=== PATIENT | female | born 1955 ===

== ENCOUNTER 2018-10-31 06:20 | Day surgery (SDC) | payer MEDICARE, MEDICAID ==
[~2018-10-31 06:20] MED LIST: Buffered Lidocaine 1% SYRIN* 1 ML/SYRINGE INTRADERM ONE; Dexamethasone IV* 4 MG/ML 1 ML (4 MG) IV SLOW PU ONE; DiMENhydriNATE IV* 50 MG/ML VIAL IV PUSH PRN; Famotidine IV* 10 MG/ML 2 ML (20 mg) IV ONE; HYDROmorphone INJ1* 1 MG/ML SYRINGE IV PRN; Lactated Ringers 1000 ML Bag* 1,000 ML IV SCH; Naloxone* 0.4 MG/ML 1 ML VIAL IV PRN; Ondansetron ODT TAB* 4 MG PO ONE; PROCHLORPERAZINE INJ 5 MG/ML 2 ML VIAL IV PRN; fentaNYL* 50 MCG/ML 2 ML VIAL (100 MCG VIAL) IV PRN; oxyCODONE TAB* 5 MG TAB PO PRN
[2018-10-31] MEDS ORDERED: Ondansetron ODT TAB* 4 MG ONE (06:22)
[2018-10-31] MEDS ORDERED: Dexamethasone IV* 4 MG/ML 1 ML (4 MG) ONE (06:23)
[2018-10-31] MEDS ORDERED: Buffered Lidocaine 1% SYRIN* 1 ML/SYRINGE INTRADERM ONE (06:23)
[2018-10-31] MEDS ORDERED: Famotidine IV* 10 MG/ML 2 ML (20 mg) ONE (06:23)
[2018-10-31] MEDS ORDERED: Bupivacaine 0.5% SDV PF* 30ML VIAL ONE (07:04)
[2018-10-31] MEDS ORDERED: Lidocaine 1% INJ* 10 MG/ML 30 ML SDV ONE (07:04)
[2018-10-31] MEDS ORDERED: Propofol* 10 MG/ML 20 ML BTL ONE (07:08)
[2018-10-31] MEDS ORDERED: Lidocaine 2% PF * 5 ML VIAL ONE (07:08)
[2018-10-31] MEDS ORDERED: Ketorolac INJ* 30 MG/ML 1 ML VIAL ONE (07:08)
[2018-10-31] MEDS ORDERED: fentaNYL* 50 MCG/ML 2 ML VIAL (100 MCG VIAL) ONE (07:09)
[2018-10-31] MEDS ORDERED: Midazolam* 1 MG/ML 5 ML VIAL (5 MG) ONE (07:09)
[2018-10-31] MEDS ORDERED: KETAMINE HCL* 50 MG/ML 10 ML VIAL ONE (07:09)
[2018-10-31] MEDS ORDERED: Flumazenil* 0.1 MG/ML 5 ML MDV ONE (08:10)
[2018-10-31 09:40] VITALS: BP 149/68
--- NOTE | 2018-10-31 14:48 | OP ---
DATE OF OPERATION: 10/31/18 [facility] DATE OF : 57 SURGEON: Cece Yepez MD TRANSFILL TECHNICIAN: SHELBI Keller ANESTHESIA: General. PRE-OP DIAGNOSIS: Left elbow olecranon bursitis. POST-OP DIAGNOSIS: Left elbow olecranon bursitis. OPERATIVE PROCEDURE: Olecranon bursectomy, left elbow. ESTIMATED BLOOD LOSS: Zero. TOURNIQUET TIME: Approximately 30 minutes. INDICATIONS FOR PROCEDURE: Lita is a 63-year-old female who has a large mass on the posterior aspect of her left elbow consistent with an olecranon bursa. It is larger than a golf ball. She presents for operative removal. DESCRIPTION OF PROCEDURE: The patient was brought to the operating room, was given a general anesthetic. And placed in the supine position on the operating table with a tourniquet around her left upper arm. The skin of her left upper extremity was prepped and draped in the usual sterile fashion. The upper extremity was exsanguinated and the tourniquet elevated to 250 mmHg. A slightly curved incision was made on the posterior aspect of the elbow toward the lateral aspect and we dissected through the subcutaneous tissue down to the bursa. The bursa was carefully dissected away from the subcutaneous tissue and the triceps tendon was filled with a large amount of clear bloody fluid. It was sent for pathology. The wound was copiously irrigated with saline. The subcutaneous tissue was closed with 3-0 Vicryl over a Dion drain and the skin edges were reapproximated with skin mj. The wound was dressed with Xeroform, 4x4, Webril, and an Yobani wrap. The patient tolerated the procedure well and was brought to the recovery room in good condition. [id number]/CPS #: [id number] MTDD
--- NOTE | 2018-12-07 14:11 | HP ---
HISTORY AND PHYSICAL: DATE OF ADMISSION: 10/31/18 CHIEF COMPLAINT: Left elbow pain. HISTORY OF PRESENT ILLNESS: Lita is a 63-year-old [id number] female, who cleans houses for a living. She presents to the clinic for left elbow pain and swelling. It has been going on for 7 months. She has noticed increased pain and intermittent swelling. She had a large mass on her elbow and this was drained by her primary care doctor. The problem has recurred. She rates her pain as 8/10. She said she has never had an infection in her olecranon bursa. She denies fever, chills, chest pain, shortness of breath. PAST MEDICAL HISTORY: Hypertension, arthritis, depression, and fibromyalgia. PAST SURGICAL HISTORY: Tumor removal, appendectomy, wisdom tooth removal, cyst removed from her breast. Denies anesthesia complications. MEDICATIONS: Currently, 1. Oxycodone 10 mg p.o. t.i.d. 2. Oxycodone 5 mg p.o. q.4 hours p.r.n. for pain. 3. Lyrica 75 mg p.o. b.i.d. ALLERGIES: None. FAMILY HISTORY: Positive for hypertension and cancer. She denies family history of DVT or PE. SOCIAL HISTORY: She lives alone. She cleans houses for living. She smokes a pack of cigarettes per day, occasionally drinks alcohol. She is right-hand dominant. REVIEW OF SYSTEMS: Positive for chills, night sweats, depression, and the current symptoms. Otherwise negative for cephalic, cardiovascular, respiratory , gastrointestinal, genitourinary, other musculoskeletal, skin, neurologic, endocrine, and hematologic symptoms. PHYSICAL EXAMINATION GENERAL: She is a healthy-appearing female, in minimal distress at rest. VITAL SIGNS: Weight is 140 pounds. Height 65 inches. Pulse 72, blood pressure 122/82. HEENT: Normocephalic, atraumatic. PERRLA. NECK: Supple. Throat is clear. PULMONARY: Lungs are clear to auscultation bilaterally. No wheezing, rhonchi, or rales. CARDIAC: Regular rate and rhythm. S1 and S2. No murmurs, gallops, or rubs. No edema. ABDOMEN: Positive for bowel sounds, soft and nontender. MUSCULOSKELETAL: Her left upper extremity shows intact skin. There is no erythema or warmth. She has a large olecranon bursa. She has full range of motion of her elbow in flexion, extension, pronation, supination. She has a palpable radial pulse and intact neurovascular function. NEUROLOGIC: She is alert and oriented without focal deficits. IMPRESSION: Left elbow olecranon bursitis. PLAN: Plan is for olecranon bursectomy in the left elbow. The surgical procedure, risks, and benefits were explained to the patient and she agrees to proceed. Her primary care doctor and pain clinic will monitor postop pain medication. We will see her back in followup for recheck approximately 10 days postop. [id number]/CPS #: [id number] MTDD
== END 2018-10-31 09:30 | disposition home or self-care (01) ==
LOC: OREAST 06:20
PROVIDERS: ATTEND Orthopaedic Surgery
DX: M70.22 Olecranon bursitis, left elbow (principal); I10 Essential (primary) hypertension; Z72.0 Tobacco use; M79.7 Fibromyalgia; M19.90 Unspecified osteoarthritis, unspecified site; F32.9 Major depressive disorder, single episode, unspecified
CPT/HCPCS: 88304; A9270-GY; J1100; J1885; J2250; J2704; J3010; J3490